=== PATIENT | female | born 1990 | race Hispanic/Latino ===

== ENCOUNTER 2019-11-16 15:43 | Emergency (ER) | payer OTHER ==
[~2019-11-16] VITALS: Ht 165.1 cm; Wt 88.5 kg
[2019-11-16] MEDS ORDERED: MORPHINE SULFATE INJ 4 MG/ML INJ 1ML IV STA (16:11)
[2019-11-16] MEDS ORDERED: SODIUM CHLORIDE 0.9% 1000ML 1,000 ML IV STA (16:11)
[2019-11-16] MEDS ORDERED: ONDANSETRON HCL INJ 2MG/ML 2ML 2 MG/ML VIAL IV STA (16:11)
[2019-11-16] MEDS ORDERED: MORPHINE SULFATE INJ 4 MG/ML INJ 1ML ONE (16:37)
[2019-11-16] MEDS ORDERED: SODIUM CHLORIDE 0.9% 1000ML 1,000 ML ONE (16:37)
--- NOTE | 2019-11-16 17:46 | Diagnostic Imaging Report ---
EXAM: CT Abdomen and Pelvis WITHOUT contrast INDICATION: Abdominal pain. COMPARISON: None. TECHNIQUE: Abdomen and pelvis were scanned utilizing a multidetector helical scanner from the lung base to the pubic symphysis without administration of IV contrast. Absence of intravenous contrast decreases sensitivity for detection of focal lesions and vascular pathology. Coronal and sagittal reformations were obtained. Routine protocol was performed. IV CONTRAST: None ORAL CONTRAST: None COMPLICATIONS: None RADIATION DOSE: Total DLP: 812.96 mGy*cm Estimated effective dose: (DLP x 0.015 x size factor) mSv CTDIvol has been reviewed. It is below the limits set by the Radiation Protocol Committee (RPC). Dose modulation, iterative reconstruction, and/or weight based adjustment of the mA/kV was utilized to reduce the radiation dose to as low as reasonably achievable. FINDINGS: LINES and TUBES: None. LOWER THORAX: Unremarkable HEPATOBILIARY: No focal hepatic lesions. No biliary ductal dilation. GALLBLADDER: No radio-opaque stones or sludge. No wall thickening. SPLEEN: No splenomegaly. PANCREAS: No focal masses or ductal dilatation. ADRENALS: No adrenal nodules KIDNEYS/URETERS: No hydronephrosis. No cystic or solid mass lesions. No stones. GI TRACT: No abnormal distention, wall thickening, or evidence of bowel obstruction. Appendix is normal. PELVIC ORGANS/BLADDER: There is a T-shaped intrauterine contraceptive device in place. Pelvic organs are unremarkable. LYMPH NODES: There are multiple prominent mesenteric lymph nodes particularly in the right lower quadrant, none of which meet criteria for pathologic enlargement. VESSELS: Unremarkable. PERITONEUM / RETROPERITONEUM: No free air or fluid. BONES: Unremarkable. SOFT TISSUES: Unremarkable. IMPRESSION: 1. No acute abdominopelvic abnormality was identified, specifically no obstructive renal or ureteral stones. 2. Multiple prominent mesenteric lymph nodes, particularly in the right lower quadrant, none of which meet criteria for pathology enlargement. This finding is nonspecific but can be seen with mesenteric adenitis, a self-limiting inflammatory process that affects mesenteric lymph nodes. Signed by: Alysha Witt MD on 11/16/2019 5:43 PM
--- NOTE | 2019-11-16 18:04 | Emergency Department Note ---
History of Present Illnes History of Present Illness Chief Complaint: Abdominal Complaints History of Present Illness This is a 29 year old female Chief Complaint Comment REPORTS DIARRHEA SINCE LAST THURSDAY, WORSE AFTER EATING. ALSO C/O INTENSE CRAMPING TO LOWER ABDOMEN. D X 3, V X 2 TODAY. NOT TAKEN ANY MEDS FOR SYMPTOMS. STATES SHE HAS AN IUD . Historian: Patient Arrival Mode: Car Onset (how long ago): day(s) (2) Location: supra pubic Quality: cramping Radiation: Denies non-radiation, Denies back, Denies neck, Denies extremity, Denies abdomen, Denies periumbilical, Denies flank, Denies proximal, Denies distal, Denies other Severity: moderate Onset quality: gradual Duration (how long): day(s) (2) Timing of current episode: intermittent Progression: waxing and waning Chronicity: new Context: Denies recent illness, Denies recent surgery, Denies recent immobilization, Denies recent travel, Denies trauma/injury, Denies new medications, Denies hx of DVT/PE, Denies non-compliance w/ medications, Denies other Relieving factors: none Exacerbating factors: none Associated symptoms: Reports nausea/vomiting; Denies denies other symptoms, Denies confusion, Denies chest pain, Denies cough, Denies diaphoresis, Denies fever/chills, Denies headaches, Denies loss of appetite, Denies malaise, Denies rash, Denies seizure, Denies shortness of breath, Denies syncope, Denies weakness, Denies other Treatments prior to arrival: none Past Medical/Family History Physician Review I have reviewed the patient's past medical and family history. Any updates have been documented here. Past Medical History Recent Fever: No Clinical Suspicion of Infectio: No New/Unexplained Change in Ment: No Past Medical History: Hypertension Past Surgical History: Other Surgery: NASAL Social History Smoking Cessation: Never Smoker Alcohol Use: None Any Illegal Drug Use: No Other Any Pre-Existing Lines (PICC,: No Review of Systems Review of Systems Constitutional: Reports no symptoms EENTM: Reports no symptoms Cardiovascular: Reports no symptoms Respiratory: Reports no symptoms Gastrointestinal: Reports no symptoms Genitourinary: Reports no symptoms Musculoskeletal: Reports no symptoms Integumentary: Reports no symptoms Neurological: Reports no symptoms Psychological: Reports no symptoms Endocrine: Reports no symptoms Hematological/Lymphatic: Reports no symptoms Physical Exam Related Data Allergies: Coded Allergies: No Known Allergies (Unverified , 11/16/19) Triage Vital Signs Vital Signs Date Time Temp Pulse Resp B/P (MAP) Pulse Ox O2 Delivery O2 Flow Rate FiO2 11/16/19 16:02 98.3 74 16 164/107 100 Room Air Vital signs reviewed: Yes Physical Exam CONSTITUTIONAL Constitutional: Present well-developed, Present well-nourished HENT HENT: Present normocephalic, Present atraumatic, Present oropharynx clear/moist, Present nose normal HENT L/R: Present left ext ear normal, Present right ext ear normal EYES Eyes: Reports PERRL, Reports conjunctivae normal NECK Neck: Present ROM normal PULMONARY Pulmonary: Present effort normal, Present breath sounds normal CARDIOVASCULAR Cardiovascular: Present regular rhythm, Present heart sounds normal, Present capillary refill normal, Present normal rate GASTROINTESTINAL Abdominal: Present soft, Present nontender, Present bowel sounds normal GENITOURINARY Genitourinary: Present exam deferred SKIN Skin: Present warm, Present dry MUSCULOSKELETAL Musculoskeletal: Present ROM normal NEUROLOGICAL Neurological: Present alert, Present oriented x 3, Present no gross motor or sensory deficits PSYCHOLOGICAL Psychological: Present mood/affect normal, Present judgement normal Results Laboratory Lab results reviewed: Yes Imaging Imaging results reviewed: Yes Assessment & Plan Medical Decision Making MDM gastroeneteritis colitis Reassessment Reassessment time: 18:03 Reassessment better Assessment & Plan Final Impression: (1) Abdominal pain (2) Vomiting and diarrhea Depart Disposition: HOME, SELF-CARE Last Vital Signs Date Time Temp Pulse Resp B/P (MAP) Pulse Ox O2 Delivery O2 Flow Rate FiO2 11/16/19 16:02 98.3 74 16 164/107 100 Room Air Medications in the ED Ondansetron HCl 4 mg NOW STAT IV Last administered on 11/16/19at 16:33; Admin Dose 4 MG; Start 11/16/19 at 16:11; Stop 11/16/19 at 16:36; Status DC Morphine Sulfate 2 mg NOW STAT IV Last administered on 11/16/19at 16:39; Admin Dose 2 MG; Start 11/16/19 at 16:11; Stop 11/16/19 at 16:35; Status DC Sodium Chloride 1,000 ml @ 0 mls/hr Q0M STAT IV Last administered on 11/16/19at 16:33; Admin Dose 999 MLS/HR; Start 11/16/19 at 16:11; Stop 11/16/19 at 16:14; Status DC Morphine Sulfate 4 mg STK-MED ONCE .ROUTE ; Start 11/16/19 at 16:37; Stop 11/16/19 at 16:33; Status DC Sodium Chloride 1,000 ml @ ud STK-MED ONCE .ROUTE ; Start 11/16/19 at 16:37; Stop 11/16/19 at 16:33; Status DC LUIS VILLRA MD Nov 16, 2019 18:04
[2019-11-16] MEDS ORDERED: CIPRO500 MG PO (18:05)
[2019-11-16] MEDS ORDERED: FLAGYL500 MG PO (18:08)
[2019-11-16] MEDS ORDERED: BENTYL10 MG/1 ML PO (18:08)
[2019-11-16] MEDS ORDERED: ZOFRAN4 MG SL (18:08)
[2019-11-16 18:17] VITALS: BP 160/96
== END 2019-11-16 18:24 | disposition home or self-care (01) ==
LOC: MERGE 16:33 → FSED 16:33
DX: R10.30 Lower abdominal pain, unspecified (principal); R19.7 Diarrhea, unspecified; R11.10 Vomiting, unspecified; I10 Essential (primary) hypertension
CPT/HCPCS: 74176; 80048; 80076; 81003; 81025; 85025; 99284; J2270; J2405; J7030